=== PATIENT | female | born 1995 | race Caucasian/White ===

== ENCOUNTER 2017-09-24 21:11 | Inpatient (IN) | payer OTHER ==
[2017-09-24 22:37] LABS: ADD UMIC YES; UR ASCORBIC ACID NEGATIVE (NEGATIVE); UR BACTERIA MANY /HPF (NONE SEEN); UR BILIRUBIN (Dip) NEGATIVE (NEGATIVE); UR BLOOD (Dip) 2+ mg/dL (NEGATIVE); UR CLARITY SLIGHTLY CLOUDY (CLEAR); UR COLOR YELLOW (YELLOW); UR GLUCOSE (Dip) NEGATIVE (NEGATIVE); UR KETONES (Dip) NEGATIVE (NEGATIVE); UR LEUKOCYTE ESTERASE (Dip) 2+ Leu/ul (NEGATIVE); UR MUCUS FEW /HPF (NONE SEEN); UR NITRITE (Dip) POSITIVE (NEGATIVE); UR RBC 45 /HPF (0-5); UR SPECIFIC GRAVITY (Dip) 1.012 (1.003-1.030); UR SQUAMOUS EPITHELIAL CELL MODERATE /HPF (FEW); UR TOTAL PROTEIN (Dip) 2+ mg/dl (NEGATIVE); UR UROBILINOGEN (Dip) NEGATIVE (NEGATIVE); UR WBC 44 /HPF (0-5)
[2017-09-25] MEDS ORDERED: MISOPROSTOL 200 MCG TAB PR ×2 (00:30→14:00)
[2017-09-25] MEDS ORDERED: CARBOPROST 250 MCG INJ IM ×2 (00:30→14:00)
[2017-09-25] MEDS ORDERED: BUTORPHANOL 2 MG INJ IV (00:30)
[2017-09-25] MEDS ORDERED: OXYTOCIN 30 UNITS/LR 500 ML IV ×2 (00:30→14:00)
[2017-09-25] MEDS ORDERED: METHYLERGONOVINE 0.2 MG INJ IM ×2 (00:30→14:00)
[2017-09-25] MEDS: LACTATED RINGER'S 1,000 ML IV ×2 (01:42→08:44)
[2017-09-25 01:56] LABS: ADD MAN DIFF? NO
[2017-09-25 01:58] LABS: WHITE BLOOD COUNT 10.8 10^3/ul (4.8-10.8)
[2017-09-25 01:58] LABS: BASOPHILS % 0.2 % (0.0-2.0); EOSINOPHILS % 0.1 % (0.0-7.0); HEMATOCRIT 30.4 % (37.0-47.0); HEMOGLOBIN 9.6 g/dl (12.0-16.0); LYMPHOCYTES # 1.7 10^3/ul (0.8-2.9); LYMPHOCYTES % 15.4 % (15.0-51.0); MEAN CORPUSCULAR HEMOGLOBIN 26.2 pg (29.0-33.0); MEAN CORPUSCULAR HGB CONC 31.6 g/dl (32.0-37.0); MEAN CORPUSCULAR VOLUME 82.8 fl (82.0-101.0); MEAN PLATELET VOLUME 9.3 fl (7.4-10.4); MONOCYTE # 0.5 10^3/ul (0.3-0.9); MONOCYTES % 4.6 % (0.0-11.0); NEUTROPHIL # 8.5 10^3/ul (1.6-7.5); NEUTROPHILS % 78.8 % (39.0-77.0); PLATELET COUNT 342 10^3/UL (140-415); RED BLOOD COUNT 3.67 10^6/ul (4.20-5.40); RED CELL DISTRIBUTION WIDTH 16.4 % (11.5-14.5)
[2017-09-25] MEDS: AMPICILLIN 2 GM/NS (PMX) 100 ML IVPB (02:01)
[2017-09-25 02:22] LABS: ALANINE AMINOTRANSFERASE 20 IU/L (13-69); ALBUMIN/GLOBULIN RATIO 1.06; ALKALINE PHOSPHATASE 179 IU/L (42-121); ANION GAP 11 (8-16); ASPARTATE AMINO TRANSFERASE 18 IU/L (15-46); BILIRUBIN,TOTAL 0.3 mg/dl (0.2-1.3); BLOOD UREA NITROGEN 6 mg/dl (7-20); CALCIUM 8.6 mg/dl (8.4-10.2); CARBON DIOXIDE 22 mmol/L (21-31); CHLORIDE 107 mmol/L (97-110); CREATININE 0.52 mg/dl (0.44-1.00); GLUCOSE 88 mg/dl (70-220); INR 0.93; POTASSIUM 3.8 mmol/L (3.5-5.1); PROTIME 12.5 Sec (11.9-14.9); SODIUM 136 mmol/L (135-144); URIC ACID 4.2 mg/dl (3.1-7.9)
[2017-09-25 02:23] LABS: ALBUMIN 3.3 g/dl (3.3-4.9); BILIRUBIN,INDIRECT 0.3 mg/dl (0-1.1); PARTIAL THROMBOPLASTIN TIME 30.3 Sec (25.0-35.0); TOTAL PROTEIN 6.4 g/dl (6.1-8.1)
[2017-09-25 02:52] LABS: HEPATITIS B SURFACE ANTIGEN NEGATIVE (NEGATIVE)
[2017-09-25] MEDS: AMPICILLIN 1 GM/NS (PMX) 50 ML IVPB ×3 (06:30→13:00)
[2017-09-25] MEDS ORDERED: OXYTOCIN 30 UNITS/LR 500 ML BAG IV (07:00)
[2017-09-25] MEDS ORDERED: BUPIVACAINE 0.75%/DEXT (SPINAL) 2 ML INJ (09:02)
[2017-09-25] MEDS ORDERED: PHENYLephrine (100 MCG/ML) 5ML SYG (09:02)
[2017-09-25] MEDS ORDERED: ONDANSETRON 4 MG INJ ×3 (09:02→10:26)
[2017-09-25] MEDS ORDERED: OXYTOCIN 10 UNIT INJ (09:02)
[2017-09-25] MEDS ORDERED: morphine SULFATE/PF (10 MG/10 ML) INJ (09:02)
[2017-09-25] MEDS: CEFAZOLIN 2 GM/50 ML (PMX) 50 ML IV (09:43)
[2017-09-25] MEDS ORDERED: METOCLOPRAMIDE 10 MG INJ (10:24)
[2017-09-25] MEDS ORDERED: MIDAZOLAM 1 MG/ML 2 ML INJ (10:27)
[2017-09-25] MEDS ORDERED: morphine 2 MG INJ IV (11:30)
[2017-09-25] MEDS ORDERED: DIPHENHYDRAMINE 50 MG INJ IV (11:30)
[2017-09-25] MEDS ORDERED: ONDANSETRON 4 MG INJ IV (11:30)
[2017-09-25] MEDS ORDERED: NALOXONE (0.4 MG/ML) INJ IV (11:30)
[2017-09-25] MEDS: OXYTOCIN 30 UNITS/LR 500 ML IV ×4 (12:48→21:58)
[2017-09-25] MEDS ORDERED: HYDROCODONE/APAP (5/325) TAB PO ×2 (14:00)
[2017-09-25] MEDS: CEFAZOLIN 1 GM/50 ML (PMX) 50 ML IVPB (14:15)
[2017-09-25 15:01] LABS: RAPID PLASMA REAGIN NONREACTIVE (NR)
[2017-09-26] MEDS: OXYTOCIN 30 UNITS/LR 500 ML IV ×2 (01:33→05:33)
[2017-09-26] MEDS: LACTATED RINGER'S 1,000 ML IV ×2 (02:06→03:30)
[2017-09-26] MEDS: KETOROLAC 30 MG INJ IV (09:47)
[2017-09-26] MEDS: SENNA/DOCUSATE NA (8.6MG/50MG) TAB PO ×2 (09:53→21:03)
[2017-09-26 10:48] LABS: ADD MAN DIFF? NO
[2017-09-26 10:51] LABS: BASOPHILS % 0.2 % (0.0-2.0); HEMATOCRIT 25.5 % (37.0-47.0); LYMPHOCYTES # 1.3 10^3/ul (0.8-2.9); LYMPHOCYTES % 10.9 % (15.0-51.0); MEAN CORPUSCULAR HEMOGLOBIN 25.9 pg (29.0-33.0); MEAN CORPUSCULAR HGB CONC 31.4 g/dl (32.0-37.0); MEAN CORPUSCULAR VOLUME 82.5 fl (82.0-101.0); MEAN PLATELET VOLUME 9.5 fl (7.4-10.4); MONOCYTE # 0.6 10^3/ul (0.3-0.9); NEUTROPHILS % 83.4 % (39.0-77.0); PLATELET COUNT 282 10^3/UL (140-415); RED BLOOD COUNT 3.09 10^6/ul (4.20-5.40)
[2017-09-26] MEDS: IBUPROFEN 600 MG TAB PO ×2 (12:00→18:24)
[2017-09-26] MEDS: OXYCODONE/ACETAMINOPHEN (5/325) TAB PO (15:32)
[2017-09-27] MEDS: IBUPROFEN 600 MG TAB PO ×5 (00:02→23:39)
[2017-09-27] MEDS: LANOLIN 7 GM TUBE TOP (00:02)
[2017-09-27] MEDS: OXYCODONE/ACETAMINOPHEN (5/325) TAB PO ×4 (02:50→23:40)
[2017-09-27] MEDS: SENNA/DOCUSATE NA (8.6MG/50MG) TAB PO ×2 (09:40→20:58)
[2017-09-28] MEDS: IBUPROFEN 600 MG TAB PO ×2 (06:24→11:56)
[2017-09-28] MEDS: OXYCODONE/ACETAMINOPHEN (5/325) TAB PO ×2 (06:24→11:57)
[2017-09-28] MEDS: SENNA/DOCUSATE NA (8.6MG/50MG) TAB PO (08:18)
[2017-09-28] MEDS: DIPHTH/TET/ACEL PERTUSS (ADULT) 0.5 ML VIAL IM* (11:58)
== END 2017-09-28 15:20 | disposition home or self-care (01) | DRG 766 ==
LOC: OBT 21:11 → L-D 21:12 → PP1 09-25 13:42
PROC: 10D00Z1 Extraction of Products of Conception, Low, Open Approach (ICD-10-PCS; principal; 2017-09-25)
DX: O34.211 Maternal care for low transverse scar from previous cesarean delivery (principal); Z3A.38 38 weeks gestation of pregnancy; Z37.0 Single live birth
CPT/HCPCS: 36415; 80053; 81001; 84560; 85025; 85610; 85730; 86592; 86850; 86900; 86901; 87340; 90715; 99464